=== PATIENT | male | born 1930 | race Caucasian/White ===

== ENCOUNTER 2016-06-03 14:43 | Inpatient (IN) | payer MEDICARE ==
[~2016-06-03] VITALS: Ht 177.8 cm; Wt 91.6 kg
--- NOTE | ~2016-06-03 | CO ---
ADMIT: 06/03/2016 RM/LOC: 419 [facility] MR#: [id number] [id number] [place], [place] [address] FLETCHER BYRD [address] [facility] [address] [place] [address] Consultation SEX: M AGE: 85 : 1930 DATE OF CONSULTATION: 06/04/2016 ATTENDING PHYSICIAN: Drew Curran CONSULTING PHYSICIAN: Remy Mancuso MD REASON FOR CONSULTATION: Altered mental status. HISTORY OF PRESENT ILLNESS: The patient is an 85-year-old gentleman who became acutely confused yesterday. He was at home. His son called EMS, and as per report, the vitals were as follows; heart rate 40s and systolic, blood pressure in 80s. The patient was taken to the hospital where he started to respond more appropriately. The patient does have amnesia to yesterday's events. The patient lives alone in an apartment. He used to live in a house with his , unfortunately past winter after 66 years of marriage. The patient admits to be depressed because of that. He reports to me that he is able to perform majority of ADLs including driving with no parking violation. No tickets. No minor accidents. Shopping, dressing and preparing his meals. He is self-administering medications. As per Cardiology note, the patient could have overdosed inadvertently with blood pressure medication explaining the heart rate and the blood pressure. The CT on arrival showed significant atrophy with minor changes and a question of enlarged ventricles/NPH and PH. PAST MEDICAL HISTORY: Significant for hypertension, hyperlipidemia, hypothyroidism, potential cognitive decline, potential depression. ALLERGIES: NO KNOWN DRUG ALLERGIES. MEDICATIONS: On outpatient basis include aspirin, Mobic, Synthroid, Zocor. FAMILY HISTORY: Noncontributory to current presentation. SOCIAL HISTORY: The patient is . No recent alcohol use. No smoking. His last alcohol drink was 20 years ago. REVIEW OF SYSTEMS: All systems reviewed, negative except as per HPI and following general fatigue, psychiatrical depression, neurological memory loss, and confusion. PHYSICAL EXAMINATION: VITAL SIGNS: Temperature 97.8, heart rate 59, respirations 16, blood pressure 170/53, saturation 99% on room air. GENERAL: The patient appears to be in no acute discomfort. HEAD: Normocephalic. NECK: Supple. CHEST: Normal respiratory rises. ADMIT: 06/03/2016 RM/LOC: 419 [facility] MR#: [id number] [address] [address] FLETCHER BYRD [address] [place] [address] [address] [place] [address] Consultation SEX: M AGE: 85 : 1930 CARDIOVASCULAR: Regular rate and rhythm. ABDOMEN: Nondistended, nontender. EXTREMITIES: No clubbing or cyanosis. NEUROLOGICAL EXAMINATION: The patient is awake, alert. He is oriented to self. He knows he is in [facility] but thinks that he is on the 14th floor. He is able to tell me correct date, month, and year but not the day of the week and not season despite he was able to identify correct month. He answered that this is fall. Recall, recalled 2/4 items after 5 minutes. Attention is reduced, tested with spelling "world" backwards as well as zero seven. He achieved only 1/5 points. Cranial nerves II through XII are fairly intact. Visual saldana are normal. Pupils equal, reactive. Extraocular muscles intact. Facial sensation is normal. Face is symmetric. Hearing to voice intact. Uvula midline. Palatal arch is symmetric. Shoulder shrug symmetric. Tongue is midline, fairly moveable. Motor examination reveals full strength throughout. Normal tone. Sensory nonfocal, nonlateralizing. Reflexes brisk, symmetric in upper extremities and knees, but absent in ankles. Babinski is flexor bilaterally. Coordination, finger- to-nose normal. Gait is wide based. Gait slightly unstable. LABORATORY DATA: Studies already available a carotid ultrasound, which is showing left internal carotid artery stenosis and the degree is 60-79%. A1c is 5.5, B12 of 287, LDL is 53. CT findings discussed above. ASSESSMENT: 1. Mild delirium secondary to hypotension and bradycardia. 2. Significant cerebral and cerebral atrophy. I do not think in the direction of NPH. 3. Cognitive decline/early dementia. 4. Depression. 5. Hypothyroidism. PLAN: MRI to be obtained. We will need to reassess gait, but again I am not confident that this represents NPH, rather there is generalized atrophy on the CT scan seen. We will obtain EEG tomorrow as well. When the workup is done, the patient may be started on SSRIs for depression with potentially Exelon. The B12 supplementation will also be started. Thank you very much for this interesting consultation. Remy Mancuso MD/ mo JOB #: [id number] CC: Drew Curran, Attending Physician Drew Curran, Family Physician
--- NOTE | ~2016-06-03 | ECH ---
Transthoracic Echocardiography Report (TTE) Demographics Patient Name FLETCHER BYRD Date of Study 06/04/2016 Patient Number [id number] Visit Number [id number] Date of 1930 Room Number 419 Accession Number [id number] Gender Male Age 85 year(s) Referring Magdy Weeks Fundraising Director Nandini Mcleod Physician KARI Physician Eva Ryan MD Clinical Psychologist Private Practice Physician Viraj Supervising Ordering Physician Magdy Weeks MD/MLP Nurse Stress Garland Maker Conclusions Contractility Score Summary Normal Left Ventricular contractility was noted. Summary Technically adequate exam. The estimated left ventricular ejection fraction is 60%. Diastolic assessment reveals Grade I diastolic dysfunction. The left atrium is mildly dilated by LA volume index measurement. Bubble study was done, there is no evidence for a PFO or ASD. There is mild-moderate aortic regurgitation by color Doppler. Trivial tricuspid regurgitation by color Doppler. There is mild pulmonary hypertension. The pulmonary pressure (RVSP) is 36 mmHg. Recommendation The patient will be given the results of this study by the physician who ordered the exam. Procedure Type of Study TTE procedure:Echo Complete SF. Procedure Date Date: 06/04/2016 Start: 11:07 AM Technical Quality: Adequate visualization Indications:Bradycardia, TIA and Hypertension. Appropriate Use Criteria: 9 Height: 70 inches Weight: 201 pounds BSA: 2.09 m Rhythm: Within normal limits HR: 63 bpm BP: 160/60 mmHg M-Mode/2D Measurements LV Diastolic Dimension: 5.28 cm LV Systolic Dimension: 3.03 cm LV Septum Diastolic: 0.92 cm LV PW Diastolic: 0.99 cm AO Root Dimension: 3.4 cm Cardiac Output: 5.16 l/min LA Dimension: 3.28 cm Cardiac Index: 2.47 l/min*m RV Diastolic Dimension: 3.51 cm LA volume index: 38 ml/m LVOT: 1.91 cm LVOT VTI: 28.61 cm RV Base: 3.4 cm LV Stroke volume: 81.93 ml RV Mid: 2 cm LV Stroke volume index: 39.2 ml/m TAPSE: 3.1 cm TDI-S': 18 cm/s Doppler Measurements AV Peak Velocity: 2.2 m/s MV Peak E-Wave: 0.99 m/s AV Peak Gradient: 19.36 mmHg MV Peak A-Wave: 1.07 m/s AV Mean Gradient: 9.04 mmHg MV E/A Ratio: 0.93 LVOT Peak Velocity: 1.37 m/s MV P1/2t: 93.3 msec AV Area (Continuity):1.8 cm AV P1/2t: 500.8 msec MV Deceleration Time: 352.2 msec TR Velocity:2.79 m/s MV Area (PHT): 2.36 cm TR Gradient:31.14 mmHg PV Peak Velocity: 0.94 m/s Estimated RAP:5 mmHg PV Peak Gradient: 3.5 mmHg Estimated RVSP: 36 mmHg Estimated PASP: 36.14 mmHg E' Septal Velocity: 0.05 m/s A' Septal Velocity: 0.09 m/s E' Lateral Velocity: 0.07 m/s A' Lateral Velocity: 0.09 m/s RA Area: 12.37 cm Findings Left Ventricle Normal left ventricle size and function. Diastolic assessment reveals Grade I diastolic dysfunction. Right Ventricle Normal right ventricle structure and function. Left Atrium The left atrium is mildly dilated by LA volume index measurement. Informed consent was obtained, bubble study was done, there is no evidence for a PFO or ASD. Right Atrium Normal right atrial size. Mitral Valve Normal mitral valve structure and function. Trivial mitral regurgitation by color Doppler. Aortic Valve Normal aortic valve structure and function. There is mild-moderate aortic regurgitation by color Doppler. Tricuspid Valve Normal tricuspid valve structure and function. Trivial tricuspid regurgitation by color Doppler. There is mild pulmonary hypertension. The pulmonary pressure (RVSP) is 36 mmHg. Pulmonic Valve Normal pulmonic valve structure and function. Trivial pulmonic valve regurgitation by color Doppler. Pericardial Effusion No evidence of pericardial effusion. Miscellaneous Visualized portions of the aortic root and ascending aorta appear normal in size. Suboptimal subcostal window to evaluate the IVC and interatrial septum. Pleural Effusion No evidence of pleural effusion. Contractility Score LV regional wall motion:(0-Non visualized 1-Normal 2-Hypokinesis 3-Akinesis 4-Dyskinesis 5-Aneurysm) Signature
--- NOTE | 2016-06-07 10:36 | CO ---
ADMIT: 06/03/2016 RM/LOC: 419 [facility] MR#: [id number] [id number] [place], [place] [address] FLETCHER BYRD [address] [facility] [address] [place] [address] Consultation SEX: M AGE: 85 : 1930 DATE OF CONSULTATION: 06/04/2016 ATTENDING PHYSICIAN: Drew Curran CONSULTING PHYSICIAN: Hetal Kim MD REASON FOR CONSULT: Bradycardia and hypotension. Vanessa Cardoso RN, scribing for Hetal Kim M.D. HISTORY OF PRESENT ILLNESS: Ed is a very pleasant 85-year-old gentleman, I have been asked to see in Cardiology consultation by Dr. Curran for bradycardia and hypotension. He has no prior history of coronary artery disease and has not been evaluated by Cardiology in the past. He does have history of hypertension and hyperlipidemia, treated by primary care and hypothyroidism as well. Ed was brought to [facility] yesterday by EMS due to increased confusion with bradycardia and hypotension. His son had called him in the morning and visited with him with no issue. He then communicated with him later on in the day and he seemed quite confused. Speaking with Ed, he remember speaking with his son in the morning, he felt fine. He did note that later on in the morning, he was working on his checkbook and noticed that he had difficulty with numbers and he stated that he had trouble thinking clearly. He notes that he was not thinking clearly when he saw his son but does not completely remember the incident. When EMS arrived, his heart rate was in the 40s and his blood pressure systolic was in the 80s. He was given atropine with minimal improvement. He was brought to the hospital, where he was communicating a little bit more with heart rate in the upper 40s to low 50s and blood pressure was still low. His blood pressure medications including verapamil and metoprolol were held and his heart rate has been above 50 since admission. His blood pressure has actually been on the higher side, this morning, it was 160/60. He is afebrile. He denies any chest pain, shortness of breath, palpitations, or presyncope. He denies any peripheral edema or orthopnea. He feels that he rested well last night and has no complaints this morning. He has been working with Physical Therapy and Occupational Therapy without any issue. Cardiac enzymes have been negative x3. TSH was mildly elevated at 5.38. PAST MEDICAL HISTORY: Includes hypertension, hyperlipidemia, hypothyroidism. ALLERGIES: NO KNOWN MEDICATION ALLERGIES. MEDICATIONS: Current medications include: 1. Aspirin 325 daily. 2. Mobic 15 mg p.o. daily. 3. Synthroid 75 mcg daily. 4. Zocor 20 p.o. at bedtime. His metoprolol and verapamil were held and since admission, Synthroid was increased from 50 mcg to 75 mcg. ADMIT: 06/03/2016 RM/LOC: 419 [facility] MR#: [id number] [address] [address] [place] [address] Consultation SEX: M AGE: 85 : 1930 FAMILY HISTORY: Noncontributory. SOCIAL HISTORY: Ed is . His recently in February and he appears to be depressed from that. He was moved from his apartment at home to assisted living at [facility]. He does do his own medications currently. Denies any alcohol or drug use. Denies any tobacco. REVIEW OF SYSTEMS: GENERAL: Denies fatigue, fever, sweats. EYES: He wears corrective lenses. Denies vision changes. THROAT, MOUTH, AND EARS: Denies hearing loss or problems with nose, mouth or throat. RESPIRATORY: Denies cough, sputum production, asthma, emphysema or bronchitis. Denies snoring loudly, wakefulness at night, or fatigue upon awakening. GASTROINTESTINAL: Denies heartburn or difficulty swallowing. No change in bowel habits. Denies dark or bloody stools. No history of ulcers, hiatal hernia, or gallbladder or liver disease. GENITOURINARY: Denies dysuria, hematuria, nocturia, urinary tract infection, or kidney stones. Denies history of renal insufficiency or failure. MUSCULOSKELETAL: Some arthritis. Denies any pains currently. ENDOCRINE: History of hypothyroidism. Denies diabetes. HEMATOLOGY: Denies history of anemia, easy bruising, or cancer. NEUROLOGIC: Denies chronic headaches, dizziness, syncope, stroke, seizures or numbness or tingling. PSYCHIATRIC: Dementia. No anxiety. He is tearful today. PHYSICAL EXAMINATION: GENERAL: A well-nourished white male, no acute distress. Alert and oriented x2. VITAL SIGNS: Blood pressure 160/60, heart rate 55, respirations 18, temperature 98.2, oxygenation 97% on room air. SKIN: [place], warm and dry. EYES: Sclerae clear. No xanthelasmas. ENT: Oral mucosa is pink and moist. No jugular venous distention or carotid bruits. CHEST: Respirations are even and unlabored. Lungs are clear to auscultation. HEART: Regular rate and rhythm. Normal S1, S2. No murmurs, rubs or gallops. ABDOMEN: Soft and nontender. MUSCULOSKELETAL: Gait is normal. Tremors positive. EXTREMITIES: Peripheral pulses palpable. No clubbing, cyanosis or edema. PSYCHIATRIC: Alert and oriented. Mood and affect are appropriate. DIAGNOSTIC DATA: Carotid ultrasound on 06/03 showed left internal carotid artery of 60-79% and right of 1-39%. Sodium 143, potassium 3.5, BUN 20, creatinine 0.9, glucose 85, magnesium 2.2. Cholesterol 128, triglycerides 88, HDL 52, LDL 63. CK 50, MB 1.2, troponin less than 0.015 on third set. All three sets have been negative. Hemoglobin A1c 5.5, TSH 5.38. White blood cell count 5.8, hemoglobin 12.5, hematocrit 39.3, platelets 118. ASSESSMENT AND PLAN: ADMIT: 06/03/2016 RM/LOC: 419 [facility] MR#: [id number] [address] [facility] [address] [place], [place] [address] FLETCHER BYRD [address] [facility] [address] [place] [address] Consultation SEX: M AGE: 85 : 1930 1. Medication-induced bradycardia. 2. Hypotension, resolved. 3. Mental status changes. I suspect medication overdose leading to his decreased heart rate. His blood pressure and heart rate have improved since hospital admission. I think he would likely benefit from medication assistance. I will review echocardiogram once that has been completed for any wall motion abnormalities, valvular abnormalities, or decreased ejection fraction. My question of depression leading to some of these memory issues as well. I did speak with his son today at the patient's request regarding these ongoing issues as well. Thank you for the consultation. I have read and agree with the documentation that has been completed regarding this visit. By signing this record, I attest that the documentation was completed in my physical presence and is an accurate record of the encounter. Vanessa Cardoso RN / Hetal Kim MD / mo JOB #: [id number] CC: Drew Curran, Attending Physician Drew Curran, Family Physician
[2016-06-07] MEDS ORDERED: FLOMAX DPS0.4 MG PO (15:15)
[2016-06-07] MEDS ORDERED: MOBIC15 MG PO (15:16)
[2016-06-07] MEDS ORDERED: SYNTHROID75 MCG PO (15:16)
[2016-06-07] MEDS ORDERED: NORCO 5-325 TA1 EACH PO (15:16)
[2016-06-07] MEDS ORDERED: ZOCOR DPS20 MG PO (15:16)
[2016-06-07] MEDS ORDERED: ASA325 MG PO (15:16)
[2016-06-07] MEDS ORDERED: NORVASC5 MG PO (15:17)
[2016-06-07] MEDS ORDERED: APRESOLINE-DPS25 MG PO (15:17)
[2016-06-07] MEDS ORDERED: DULCOLAX-DPS5 MG PO (15:17)
[2016-06-07] MEDS ORDERED: B-12 IM (15:18)
[2016-06-07] MEDS ORDERED: EXELON1 EACH TD (15:19)
[2016-06-07] MEDS ORDERED: SEROQUEL25 MG PO (15:19)
[2016-06-07] MEDS ORDERED: MAALOX DPS30 ML PO (15:19)
[2016-06-07] MEDS ORDERED: SURFAK DPS240 MG PO (15:20)
[2016-06-07] MEDS ORDERED: TYLENOL DPS325 MG PO (15:24)
--- NOTE | 2016-06-07 20:05 | CO ---
ADMIT: 06/03/2016 RM/LOC: 419 [facility] MR#: [id number] 26[address] [facility] [address] [place], [place] [address] FLETCHER BYRD [address] [facility] [address] [place] [address] Consultation SEX: M AGE: 85 : 1930 DATE OF CONSULTATION: 06/05/2016 ATTENDING PHYSICIAN: Drew Curran CONSULTING PHYSICIAN: Albin Kent MD LOCATION OF SERVICE: [facility]. REASON FOR CONSULTATION: Dr. Smith has requested our consultation for apprise counselor, coordination of long-term goals, and options of care. HISTORY OF PRESENT ILLNESS: This is a pleasant 85-year-old, elderly male, who was admitted on 06/03/2016 with altered mental state. He was living in independent living area apartments at [facility] here in [place]. It is reported that he became acutely confused and his son, [id number], Oleksandr Byrd called 911, and he was found have a heart rate in the 40s, and the systolic blood pressure in the 80s. He was transferred here to [facility] for further evaluation and treatment. [facility] Cardiology team has been following him and has had completed medication adjustments as they do feel this was medication-related bradycardia. He did have a transthoracic echocardiogram completed on 06/04/2016, revealing ejection fraction 60% with diastolic dysfunction, stage I. Negative for PFO or ASD, mild pulmonary hypertension with an RVSP of 36 mmHg. He also had a CT of the neck revealing the left proximal ICA 73% stenosis on 06/04/2016. Dr. Mancuso with Neurology has also been consulted due to his altered mental status, and a CT of his head was completed on 06/03/2014, revealing mild chronic small vessel ischemic changes questionable for normal pressure hydrocephalus. He then further evaluation had an MRI of the brain on 06/04/2016, which showed moderate-to- severe atrophy with chronic small vessel ischemic changes. An EEG has been ordered today and completed and results are pending at this time. It is thought that the patient does have cognitive delay and early dementia, and did experience delirium secondary to hypotension and bradycardia. Mr. Byrd is struggling with depression as his spouse did last winter, they were for 66 years. He feels he has good support through his family and friends. He has had blood cultures and urine cultures obtained since admit, which have been negative so far. His heart rate is in the 60s at this time, and Cardiology has signed off for now with a followup in the future for further evaluation and treatment needs. Dr. Mancuso of Neurology continues to follow as the EEG was completed today and results are pending. He is continuing to work with Physical Therapy and Occupational Therapy at this time for his debility, and Social Work is following with plans of the half-way facility at discharge with transition into an assisted living apartment to assist with medication administration and overall safety and needs. Current functional status reflects a palliative performance score of 50. He spends most of the time in the bed or in a chair, unable to do any work due to his overall disease state. He does need assist with his self care. He is working with Physical Therapy and occupational Therapy at this time. His ADMIT: 06/03/2016 RM/LOC: 419 [facility] MR#: [id number] [address] [place] [id number] [address] [place] [address] Consultation SEX: M AGE: 85 : 1930 intake is reduced. His conscious level is full at this time. He is alert and oriented x3, and able to participate in conversation with me at this time. Prior to admission, he reports his functional status reflected a palliative performance score of around 90. He was ambulating without assistive device. He was able to live in independent living apartment. He was able to perform the majority of his ADL including driving with no parking violations or tickets or minor accidents. He was able to do shopping, dressing, and preparing his meals, and he was self administering his medications. He denies any falls or any weight loss. PAST MEDICAL HISTORY: 1. Hypertension. 2. Hyperlipidemia. 3. Hypothyroidism. 4. Potential cognitive decline, dementia 5. depression. ADVANCED DIRECTIVE AND CODE STATUS: He is a do not resuscitate/do not resuscitate status. His healthcare [id number] is his son, Oleksandr Byrd and his phone #[phone]. SOCIAL HISTORY: He was living in an independent living apartment at [facility]. He is . His of 66 years last winter on hospice care. He is Jain. 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 He denies alcohol, tobacco use, or illicit drug use at this time. He does have 7 children involved in his care. FAMILY HISTORY: Reviewed and noncontributory. CURRENT MEDICATIONS: Include: 1. Norvasc 5 mg p.o. daily. 2. Seroquel 12.5 mg p.o. at bedtime p.r.n., insomnia. 3. Apresoline 25 mg p.o. t.i.d. 4. Flomax 0.4 mg p.o. b.i.d. 5. Aspirin 325 mg p.o. daily. 6. Mobic 15 mg p.o. daily. 7. Synthroid 0.075 mg p.o. daily. 8. Haldol 0.5 mg IV push q.hour p.r.n. 9. Zocor 20 mg p.o. at bedtime. 10.Maalox 30 mg p.o. q.6 hours p.r.n. 11.Tylenol 650 mg p.o. q.4 hours p.r.n. ALLERGIES: NO KNOWN DRUG ALLERGIES. REVIEW OF SYSTEMS: A 10-point review of systems was obtained and they were negative except as noted in HPI and PMH. He does refer general fatigue. He does report depression since his passed. He does report he was confused on admit, however, he feels he is much clearer now. He denies cough, fever, chills, or recurrent infections. ADMIT: 06/03/2016 RM/LOC: 419 [facility] MR#: [id number] [address] [address] FLETCHER BYRD [address] [facility] [address] [place] [address] Consultation SEX: M AGE: 85 : 1930 PHYSICAL EXAMINATION: CONSTITUTIONAL: Weight is 202 pounds. Please see medical record for height and BMI. GENERAL STATUS: This is a pleasant elderly male, in no acute distress. Alert and oriented, able to participate fully in consultation. VITAL SIGNS/CODE STATUS: He is a do not resuscitate/do not intubate status with temperature of 98.1, heart rate 60, respiratory rate 18, blood pressure 173/70. He is on room air oxygenating at 97%. HEENT: Head is normocephalic and atraumatic. He is not wearing glasses. Pupils are 3 mm. PERRLA. Hearing is intact bilaterally. Oral mucosa is dry. Dentition is worn. Anicteric sclerae. Conjunctiva is pale. NECK: No lymphadenopathy. Trachea is midline. Supple. No JVD. RESPIRATORY: Respirations are regular without distress. Lung sounds are clear to auscultation bilaterally. CARDIOVASCULAR: Rate and rhythm are regular. I do not auscultate any rubs, murmurs, clicks, or gallops. GASTROINTESTINAL: Abdomen is obese, nontender, nondistended. Positive bowel sounds in all 4 quadrants. EXTREMITIES: Upper and lower extremities are free of cyanosis, clubbing. He does have a trace amount of edema. INTEGUMENTARY: Skin temperature is warm. Skin is intact. MUSCULOSKELETAL: Free of joint deformities. He does have generalized weakness. NEUROLOGICAL: Alert and oriented x3. He does follow commands. PSYCHIATRIC: Affect is appropriate. Insight is intact. DIAGNOSTIC DATA: Laboratory work reveals a sodium of 143, potassium 3.5, chloride 110, creatinine 0.9, albumin 3.6. TSH 5.38. INR 1.05. WBC of 5.8, hemoglobin 12.5, hematocrit 39.3, platelets 118. Blood cultures and urine cultures collected on 06/03/2016 are negative so far. Radiology reports have been reviewed, please see EMR for details. IMPRESSION AND PLAN: 1. Physical debility. Physical therapy and Occupational Therapy are following at this time. 2. Acute encephalopathy. Dr. Mancuso with Neurology is following and EEG has been obtained today, which is pending, his encephalopathy has improved since admit. 3. Fatigue. 4. Dementia with FAST score of around 4 to 5. 5. Insomnia. Seroquel is available on an as-needed basis. I do recommend considering using melatonin in the future if insomnia persists. 6. Hypokalemia. 7. Bradycardia, which is resolved, and MOMO is following, and has ordered medication changes. 8. Severe left carotid stenosis. 9. Diastolic dysfunction stage I. 10.Hypertension. ADMIT: 06/03/2016 RM/LOC: 419 [facility] MR#: [id number] [address] [place] [id number] FLETCHER BYRD [address] [place] [address] Consultation SEX: M AGE: 85 : 1930 11.Hyperlipidemia. 12.Mild pulmonary hypertension with RVSP of 36 mmHg. 13.Depression. 14.Hypothyroidism. 15.Palliative care. 16.Do not resuscitate/do not intubate status. Currently, plan of care is in place with optimization along with a do not resuscitate/do not intubate status and Mr. Byrd confirms this. Social Work is following at this time for discharge needs and reports he will start in a half-way environment with transition into assisted living and will not return to his independent living, and the patient agrees to this as well. Son is healthcare [id number] by the name of Oleksandr Byrd and he is involved in his care and has been updated. I reviewed goals and options of care with the patient and he verbalizes understanding and explains to me that his spouse in 2015, and his #1 goal is to continue to try to find meaning and hope in life again. He finds enjoyment in his seven children as well as baseball. He enjoys [employer] as well as his friends. He explains having all of his plans completed as his did, and is "ready when the time comes." He reports his spouse, Polina, on hospice care and he would want the same when his time comes. He reports his children know this as well. Mr. Byrd is aware of living environment changes due to the safety needs as well as care needs and medication administration needs and he agrees to placement in half-way facility and in assisted living environment in the future. Much encouragement given to him to enjoy life, and to continue the Physical Therapy and Occupational Therapy and to allow assistance with his care which I hope provides him more independence in the future. We will continue to follow this wonderful gentleman and provide support as he continues to grieve the loss of his . I recommend a antidepressent trial in the future if depression continues. I have discussed this consultation with Social Work as well as nursing staff. Mr. Byrd was seen in collaboration with Dr. Albin Kent, who agrees with above assessment discussion and plan. I would like to thank Dr. Smith for the invitation to participate in Mr. Byrd's hospital course. Total consultation time was from 0950 hours to 1054 hours on 06/05/2016 by the Palliative Medicine DISABILITY INSURANCE HEARING OFFICER. Greater than 50% of this time was spent at the bedside in counselling and coordination of care. Litzy Kwok, JORJE / Albin Kent MD / mo JOB #: [id number] CC: Drew Curran, Attending Physician Drew Curran, Family Physician
--- NOTE | 2016-06-11 19:06 | ER ---
ADMIT: 06/03/2016 RM/LOC: 419 [facility] MR#: [id number] [id number] [place], [place] [address] FLETCHER BYRD [address] [facility] [address] [place] [address] Emergency Room Report SEX: M AGE: 85 : 1930 DATE: 06/03/2016 HISTORY OF PRESENT ILLNESS: The patient is an 85-year-old male, who is living in assisted living and with a history of hypothyroidism and hypertension, who was brought here because of altered mental status and low blood pressure. Per son, he talked to the patient this morning and the patient was at baseline mental status and while at 1330 hours, he called the patient. He noticed the patient was confused. He got to the place and noticed the patient is not at his baseline, is just staring, and could not really respond as well as before and looks disoriented. He called EMS. Per EMS at the scene, the patient had heart rate of low 40s and blood pressure systolic was in 80s. The patient received atropine 0.5 mg which changed the heart rate to high 40s. The patient was brought to the ER. Talking to the patient, he was mildly confused. The systolic blood pressure was in high 80s, and the pulse was between 45 and 55. The patient was answering questions. Denied any chest pain or any discomfort or any fall or taking any drugs. The patient states he dispenses his medication himself. PHYSICAL EXAMINATION: HEAD AND NECK: Pupils are 3 mm, reactive to light bilaterally. Normal extraocular movements. Trachea midline. NECK: No bruit on the neck. HEART: Normal S1, S2. LUNGS: Normal bilateral clear lung sounds. ABDOMEN: Soft. NEUROLOGIC: Motor and sensory and cerebellar test and cranial nerves are grossly normal. MEDICATIONS: The patient's medications consist of: 1. Beta-amarjit. 2. Calcium channel amarjit. 3. Verapamil. 4. Metoprolol. 5. Levothyroxine 50 mcg. The patient states he dispenses the medications himself. EMERGENCY DEPARTMENT COURSE: EKG was suggestive of junctional escape rhythm with a rate of low 40s. I did not see any ST or T changes. At this stage, the patient received half a liter IV fluid normal saline, which increased the systolic blood pressure to 105. Heart rate is changing between 48 and 58. The patient became more alert and oriented and son came at bedside and stated ADMIT: 06/03/2016 RM/LOC: 419 [facility] MR#: [id number] [address] [address] FLETCHER BYRD [address] [place] [address] Emergency Room Report SEX: M AGE: 85 : 1930 that the patient is at very similar to baseline. CT scan of the brain showed hydrocephalus, questionable normal pressure hydrocephalus, with some small vessel chronic ischemic changes. There is no acute bleeding in the brain. At this stage, primary cardiac conduction pathology, block versus calcium channel amarjit and beta-amarjit overdose are at the top of differentials. Cardiac enzyme, troponin I was negative. D-dimer was negative. TSH was elevated to 5.3. The rest of the lab work was noncontributory. Chest x-ray did not show any pathologies. The patient was observed during his observation in the ER since the time he came. A pacer pad was put on the patient for any possible pacing which could be needed. Family Medicine was consulted. The patient was admitted for further followups and treatments of bradycardia, altered mental status, questionable overdose of metoprolol and verapamil. Yariel Garcia MD/ mo JOB #: [id number] CC: Drew Curran MD, Attending Physician Drew Curran MD, Family Physician
--- NOTE | 2016-06-21 13:58 | HP ---
ADMIT: 06/03/2016 RM/LOC: 419 [facility] MR#: [id number] [id number] [place], [place] [address] [address] [facility] [address] [place] [address] History and Physical SEX: M AGE: 85 : 1930 DATE OF SERVICE: CHIEF COMPLAINT: Altered mental status with confusion and disorientation. CLINICAL HISTORY: The patient is an 85-year-old, white male, who was brought to the ER by ambulance after being found by his son on the afternoon of 06/03/2016 to be confused, disoriented, and for a short period of time unresponsive with no verbal response, just a blank stare. His son had talked to him earlier in the morning and he seemed quite appropriate. He does have some mild confusion and some forgetfulness but was at his baseline mental status earlier in the morning on 06/03/2016. When his son checked in on him on the afternoon of 06/03/2016, he was confused, disoriented, and as noted while his son was talking to him, the patient had a blank stare and was unresponsive for approximately a minute. Because of the unresponsive episode, his son called EMS. On arrival of the ambulance, the patient was noted to have a heart rate in the 40s and a systolic blood pressure in the 80s. An IV was started and he was given IV atropine which elevated his heart rate to the high 40s to low 50s, but there was still no significant improvement in blood pressure. They gave him a fluid bolus, but while en route to the hospital, his systolic blood pressure was running around 80-90. By the time he arrived in the ER, his blood pressure was improved. He denied any chest pain or shortness of breath. He was confused for the events of the afternoon. Do note he has a history of hypertension and is on both beta-amarjit as well as a calcium channel amarjit. There was some concern that he may have double dosed or overdosed his blood pressure medications. As noted in the ER, his fluid bolus was continued and his blood pressure improved, but he continued to remain bradycardic with heart rate 45 to 50. Given his bradycardia, hypotension, and altered mental status, it was felt best to admit the patient. There was concern for possible acute cerebrovascular event or TIA. A CT of his head done in the ER showed no evidence of acute stroke or acute hemorrhage. However, there was significant cerebral atrophy and changes of chronic small vessel disease. Because of his altered mental status, he is admitted at this time for observation of both neurologic status to rule out acute CVA as well as for cardiac monitoring to rule out acute cardiac event given his bradycardia and hypotension. PAST MEDICAL HISTORY: RECENT HOSPITALIZATIONS: None. The patient was last hospitalized at [facility] in 1996. He was hospitalized for a hydrocelectomy for a left hydrocele. Other surgeries include a remote past history of appendectomy, inguinal hernia repairs x3, previous hydrocelectomy on the right side. He has had no other major surgeries. MEDICAL ILLNESSES: His medical illnesses include: 1. Hypertension. 2. Hyperlipidemia. 3. Generalized osteoarthritis. 4. Chronic back pain. ADMIT: 06/03/2016 RM/LOC: 419 [facility] MR#: [id number] [address] [place] [id number] [place] [address] History and Physical SEX: M AGE: 85 : 1930 5. Advanced degenerative disk disease, lumbosacral spine. 6. Benign prostatic hypertrophy. 7. Hypothyroidism. 8. Chronic constipation. 9. Chronic cerebrovascular disease. CURRENT MEDICATIONS: Include: 1. Flomax 0.4 mg twice daily. 2. Simvastatin 20 mg at bedtime. 3. Meloxicam 15 mg daily. 4. Terazosin 5 mg at bedtime. 5. Metoprolol 12.5 mg b.i.d. 6. Verapamil ER 240 mg one daily. 7. Levothyroxine 50 mcg daily. 8. [place] 5/325, one every 4 hours p.r.n. back pain. 9. ASA 5 grains daily. 10.Dulcolax 5 mg tablet one daily p.r.n. constipation. ALLERGIES: THE PATIENT DENIES ANY ALLERGIES AT THIS TIME. HOWEVER, OLD RECORDS REVEAL A PAST HISTORY OF POSSIBLE RASH FROM [place]. SOCIAL HISTORY: The patient is recently . His approximately 4-5 months ago. Since then, he has moved out of the family home and is now living in independent living at [facility]. He has had a great deal of stress with the loss of his lifelong partner. He has had some ongoing depression since her . Family has noted since he is now living on his own, significant increase in his confusion and memory deficits. He is a nonsmoker. He rarely consumes any alcoholic beverages. He has no history of illicit drug use. The patient retired approximately 15 years ago. FAMILY HISTORY: There is no significant family history of any familial- related health problems. There is a history of hypertension and coronary artery disease, but for most of the family members, this has been late in life. REVIEW OF SYSTEMS: CONSTITUTIONAL: No fever. No chills. No recent change in appetite. Weight stable. HEENT: He does have some mild hearing impairment. No other eye, ear, nose, or throat complaints. No upper respiratory congestion. No swallowing difficulties. PULMONARY: No shortness of breath. No cough. No sputum production. No pleuritic chest pain. CARDIAC: No chest pain. No palpitations. No prior history of rhythm disturbance. GASTROINTESTINAL: History of hiatal hernia. Past history of esophageal stricture, some chronic GERD symptoms. No vomiting or diarrhea. Struggles with intermittent constipation. GENITOURINARY: History of BPH, urinary hesitancy. No recent or prior urinary ADMIT: 06/03/2016 RM/LOC: 419 [facility] MR#: [id number] [address] [address] [address] [facility] [address] [place] [address] History and Physical SEX: M AGE: 85 : 1930 tract infections. No dysuria or hematuria. No history of kidney stones. MUSCULOSKELETAL: Chronic back pain. History of degenerative disk disease. History of lumbar spinal stenosis at L4-L5, L5-S1. History of chronic left sciatica with weakness in his left leg. Does have generalized arthritis. NEUROLOGIC: No previous history of strokes, seizures, or unusual headaches. No focal neurologic symptoms. ENDOCRINE: No history of diabetes. He is hypothyroid, on thyroid replacement. HEMATOLOGIC: No history of blood clots or clotting disorders. No history of anemia. PSYCHIATRIC: He has had some mild depression since the loss of his . No previous history of depression or mood difficulties. There has been some mild neurocognitive impairment noted over the last 6 months. PHYSICAL EXAMINATION: VITAL SIGNS: Temp is 97.7, pulse 55, respirations 16, blood pressure on admission to the floor 131/57, O2 saturation 96%. Current weight is 201 pounds, height is 5 feet 10 inches. GENERAL: The patient is an 85-year-old male who appears his stated age. He is in no acute distress. He is oriented to place and person but disoriented to time. He has some amnesia and no memory of the events of earlier in the afternoon. He is unsure or not whether he took his medications but believes he did. HEENT: Reveals his ears to be clear. Hearing is grossly intact. Nose and throat noninflamed. Pupils equal and reactive. Sclerae nonicteric. Extraocular movements intact. NECK: Supple. No carotid bruits. No neck masses. Thyroid not enlarged. LUNGS: Today are noted to be clear. No dullness to percussion. HEART: Has a regular rhythm. He is bradycardic. No significant murmur noted. ABDOMEN: Somewhat protuberant and obese, nontender. No masses. No organomegaly. Bowel sounds normoactive. No CVA or suprapubic tenderness. GENITALIA: Normal male. No hernias. EXTREMITIES: He is noted to have changes of chronic venous insufficiency and rather significant stasis dermatitis of his left lower extremity. He has some muscle atrophy and weakness in the left leg compared to the right. The patient's balance is unsteady. He struggles a little to get from sitting to standing. Once standing, he has a wide based gait and seems to be unstable without use of a walker. I cannot appreciate any new focal neurologic deficits, but as noted balance is poor and he exhibits generalized weakness. LABORATORY WORK: In the ER, his CBC showed a white count of 7000, hemoglobin 13.4. INR was normal at 1.05. Cardiac enzymes were normal with troponin I being less than 0.015. Chemistry studies showed his sodium to be 143, potassium 4.1, BUN was 19, creatinine 1.4. Magnesium was 2.2. His urinalysis was clear. TSH was elevated at 5.38. ASSESSMENT AT THE TIME OF ADMISSION: 1. Altered mental status, possible transient ischemic attack. Rule out ADMIT: 06/03/2016 RM/LOC: 419 [facility] MR#: [id number] [address] [address] [address] History and Physical SEX: M AGE: 85 : 1930 cerebrovascular accident. 2. Progressive neurocognitive impairment. Suspect cerebrovascular insufficiency. 3. Chronic cerebrovascular disease with small vessel disease as documented on head CT in the ER. 4. Bradycardia, possibly medication-related. 5. Hypotension, possibly medication-related. 6. Hypertension. 7. Hyperlipidemia. 8. Hiatal hernia with chronic gastroesophageal reflux disease. 9. Benign prostatic hypertrophy. 10.Degenerative disk disease, lumbosacral spine. 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 12.Hypothyroidism. PLAN: Plan is to admit the patient. Concerned about both an acute cerebrovascular event as well as possible acute cardiac event. We will do serial EKGs and enzymes. We will ask Cardiology to see and evaluate as well. We will also ask Neurology to see him in consultation. I feel his mental status changes are probably most likely related to his progressive cerebrovascular small vessel disease but need to proceed with further workup to include carotid Doppler study, echocardiogram, and MRI of the head. We will get, as noted, both Neurology and Cardiology consultations. Ultimately feel that he will need at least a short-term alf unit stay. Question whether it is safe for him to return to an independent living status or if we need to be looking at assisted living for him for medication management. Drew Curran MD/ mo JOB #: [id number] CC: Drew Curran, Attending Physician Drew Curran, Family Physician
--- NOTE | 2016-07-02 10:27 | EEG ---
ADMIT: 06/03/2016 RM/LOC: 419 [facility] MR#: [id number] [address] [facility] [address] [place], [place] [address] [address] [facility] [address] [place] [address] Inpatient EEG SEX: M AGE: 85 : 1930 DATE: 06/05/2016 EEG NUMBER: [id number]. HISTORY OF PRESENT ILLNESS: The patient is an 85-year-old gentleman with history of delirium. This is a routine 21-channel digital EEG recording performed on a cooperative patient, who was awake and drowsy in various portions of the study. The study is performed using the 10/20 international electrode placement system. During wakefulness, the background activity is fairly well organized, consisting of regular and symmetrical lower amplitude activity up to 8.5 Hz in frequency, seen posteriorly which attenuates with eye opening. In addition, moderate amount of low-amplitude fast activity is seen anteriorly. During periods of drowsiness, there is generalized attenuation of the posterior dominant rhythm with appearance of medium amplitude 6 to 7 Hz activity seen bilaterally. There were no focal slowing nor epileptiform discharges seen in this recording. Hyperventilation was not performed secondary to age, photic stimulation was performed at 1-33 Hz frequency, which elicited bilateral driving response. IMPRESSION: This is mildly abnormal, awake and drowsy EEG recording secondary to mild slowing of the posterior background rhythm which is suggestive of mild encephalopathy. COMMENTS: Normal cardiac rhythm is noted throughout this recording. Remy Mancuso MD/ modl JOB #: [id number] CC: Drew Curran MD, Attending Physician Drew Curran MD, Family Physician
--- NOTE | 2016-07-10 09:02 | DS ---
ADMIT: 06/03/2016 RM/LOC: 419 [facility] MR#: [id number] [id number] [place], [place] [address] [address] [facility] [address] [place] [address] General Discharge Summary SEX: M AGE: 85 : 1930 ADMISSION DATE: 06/03/2016 DISCHARGE DATE: 06/06/2016 ADMITTING DIAGNOSIS: As per history and physical. FINAL DIAGNOSES: 1. Altered mental status secondary to accidental prescription drug overdose. 2. Toxic encephalopathy. 3. Bradycardia secondary to overdose of beta-blockers. 4. Transient ischemic attack. 5. Chronic cerebrovascular disease. 6. Vascular dementia without behavioral disturbance. 7. Hypotension secondary to overdose of hypertensive medications. 8. 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 9. Depressive disorder, not otherwise specified. 10.Degenerative disk disease, lumbosacral spine. 11.Benign prostatic hypertrophy. 12.Gastroesophageal reflux disease without esophagitis. 13.Chronic constipation. 14.Generalized osteoarthritis. 15.Chronic venous insufficiency of the lower extremities. 16.Chronic insomnia. 17.Hypothyroidism. 18.Hypertension. 19.Hyperlipidemia. COMPLICATIONS: None. OPERATIONS: None. CLINICAL HISTORY: The patient is an 85-year-old, white male, brought to the ER by ambulance after being found at home by his son. He was noted to be confused, disoriented, and at one point was minimally responsive, sitting with just a blank stare. When initially evaluated by EMS, he was found to be hypotensive with systolic blood pressures in the low 80s, bradycardic with heart rates in the 40s. He was transported to the ER by ambulance and was evaluated there. CT of his head done in the ER showed changes of chronic small vessel disease and chronic ischemic disease, no evidence of acute stroke. The patient was given atropine for his bradycardia in the ER and admitted for monitoring of his neurologic status. He was returning to his baseline cognitive function while in the ER, but no other focal deficits. No evidence of acute stroke, but it was felt that he had had a probable TIA. For further details of his clinical history as well as past medical history and pertinent findings on physical exam, please see dictated history and physical. Please also see dictated Cardiology and Neurology consultation. LABORATORY AND X-RAY SUMMARY FROM THIS ADMISSION: His initial CBC showed a white count of 7000, hemoglobin 13.4. Repeat CBC the day following admission showed no change, white count 5800, hemoglobin 12.5, hematocrit 39.3. His ADMIT: 06/03/2016 RM/LOC: 419 [facility] MR#: [id number] [address] [address] [place] [address] General Discharge Summary SEX: M AGE: 85 : 1930 baseline protime and coagulation studies were normal. INR was 1.05. PTT was 21.1. Urinalysis on admission was clear. His initial chemistry studies showed a sodium of 143, potassium of 4.1, BUN of 19, creatinine of 1.4. LFTs were normal. Magnesium was normal at 2.2. Drug screen was negative for any illicit drugs. He was negative for prescription opiates as well as benzodiazepines. His chemistry studies at discharge showed a sodium of 143, potassium 3.5, BUN 20, creatinine 0.9. The patient's cholesterol was noted to be 123, triglycerides 88, HDL 52, LDL 53. His hemoglobin A1c was normal at 5.5. TSH was mildly elevated at 5.38. Vitamin D level was low at 10. Blood cultures drawn on admission showed no growth. Urine culture showed no growth. Blood type is noted to be A negative with negative antibody screen. X-ray studies included a head CT done in the ER, which showed chronic small vessel ischemic changes with no other signs of acute stroke or intracranial bleeding. CT angiogram did show a left proximal internal carotid artery stenosis of 73%. MRI of his head confirmed chronic small vessel ischemic changes with moderate- to-severe cerebral atrophy. His chest x-ray showed borderline cardiomegaly with some lower lobe atelectasis, but no acute infiltrates or evidence of pneumonia. Carotid Doppler study confirmed a significant stenosis in the left internal carotid artery ranging between 60-79%. This was evaluated further with CT angiogram of the carotids. His echocardiogram done during this hospitalization showed an EF of 60%, mild diastolic dysfunction. There is [id number] aortic regurgitation, trivial tricuspid regurgitation, mild age-related pulmonary hypertension. The patient did have an EEG performed which showed no evidence of seizure activity, mildly abnormal with generalized slowing of the background rhythm which is suggestive of a mild encephalopathy. EKG showed sinus bradycardia. Serial EKG showed no sequential change. HOSPITAL COURSE: The patient was admitted for monitoring of his cardiac and neurologic status. He was significantly bradycardic initially, but as his beta-blockers and calcium channel blockers were held, his hypotension and bradycardia resolved over the first 48 hours. Neurology saw him in consultation. It was felt that he had had a TIA episode probably precipitated by his hypotension and bradycardia. We saw no other new focal neurologic symptoms. The patient did exhibit paranoia and some delusional thought processes while in the hospital. He also showed significant short-term memory impairment and a presumptive diagnosis of vascular dementia was made. Over the course of his hospitalization, his mental status improved slowly, his cardiac symptoms resolved, and ultimately we had to resume blood pressure medication because of his elevated blood pressures. We did get a Palliative Care consult as well. It was felt that the patient would benefit from short- term rehab stay, and at discharge, on 06/06/2016, he was dismissed to a senior living unit bed at [facility] where he is to receive PT/OT and speech therapy. [facility] the [facility] 10[facility]14 days with him. Arrangements were also made for followup on the Cardiac and Neurology consultations as an outpatient. The patient was dismissed on the following medications: 1. Apresoline 25 mg t.i.d. 2. ASA 325 mg one daily. ADMIT: 06/03/2016 RM/LOC: 419 [facility] MR#: [id number] [address] [facility] [address] [place], [place] [address] [address] [facility] [address] [place] [address] General Discharge Summary SEX: M AGE: 85 : 1930 3. Flomax 0.4 mg b.i.d. 4. Mobic 15 mg daily. 5. Norvasc 5 mg daily. 6. Levothyroxine 75 mcg daily. 7. Zocor 20 mg at bedtime. 8. Vitamin B12 1000 mcg IM daily for 7 days, then once weekly. 9. Exelon 4.6 mg patch change daily. 10.Lortab 5 mg one every 4 hours for pain. 11.Maalox 30 mL p.r.n. indigestion. 12.Seroquel 12.5 mg once daily at bedtime. 13.Surfak 240 mg b.i.d. p.r.n. constipation. 14.Tylenol 650 mg q.4 hours p.r.n., minor discomfort. The patient is to have his blood [facility]. Arrangements were made for Vascular Surgery consult for his carotid occlusive disease with an appointment scheduled with Dr. Gates. At the time of discharge, do note the patient is a no code, do not resuscitate. We will dismiss to senior living unit bed at [facility] with planned followup as noted in approximately 7-10 days [facility] the [facility]. Drew Curran MD/ mo JOB #: [id number] CC: Drew Curran MD, Attending Physician Drew Curran MD, Family Physician
[2016-11-17] MEDS ORDERED: ARICEPT DPS5 MG PO (09:34)
[2016-11-17] MEDS ORDERED: LANOXIN125 MCG PO (09:35)
[2016-11-17] MEDS ORDERED: CELEXA DPS20 MG PO (09:35)
[2016-11-17] MEDS ORDERED: FLOMAX DPS0.4 MG PO (09:35)
[2016-11-17] MEDS ORDERED: MELATONIN3 MG PO (09:36)
[2016-11-17] MEDS ORDERED: LOPRESSOR DPS50 MG PO (09:36)
[2016-11-17] MEDS ORDERED: METAMUCIL SF P3.4 GM PO (09:36)
[2016-11-17] MEDS ORDERED: LASIX DPS40 MG PO (09:36)
[2016-11-17] MEDS ORDERED: ZOCOR DPS20 MG PO (09:38)
[2016-11-17] MEDS ORDERED: PROTONIX40 MG PO (09:38)
[2016-11-17] MEDS ORDERED: SULFAMYLON453.6 GM TP (09:38)
[2016-11-17] MEDS ORDERED: MICRO-K DPS10 MEQ PO (09:38)
[2016-11-17] MEDS ORDERED: COLACE-DPS100 MG PO (09:39)
[2016-11-17] MEDS ORDERED: TEFLARO600 MG IV (09:39)
[2016-11-17] MEDS ORDERED: NORCO 5-325 TA1 EACH PO (09:39)
[2016-11-17] MEDS ORDERED: MAALOX DPS30 ML PO (09:40)
[2016-11-17] MEDS ORDERED: TYLENOL DPS325 MG PO (09:40)
== END 2016-06-06 15:15 | DRG 917 ==
LOC: ER 14:43 → 4PCU 16:31
PROVIDERS: ADMIT Family Medicine
PROC: 4A10X4Z Monitoring of Central Nervous Electrical Activity, External Approach (ICD-10-PCS; principal; 2016-06-06)
DX: T46.5X1A Poisoning by other antihypertensive drugs, accidental (unintentional), initial encounter (principal); G92 Toxic encephalopathy; R00.1 Bradycardia, unspecified; G45.9 Transient cerebral ischemic attack, unspecified; E87.1 Hypo-osmolality and hyponatremia; F03.90 Unspecified dementia, unspecified severity, without behavioral disturbance, psychotic disturbance, mood disturbance, and anxiety; I95.2 Hypotension due to drugs; I65.22 Occlusion and stenosis of left carotid artery; F32.9 Major depressive disorder, single episode, unspecified; M51.36 Other intervertebral disc degeneration, lumbar region; N40.0 Benign prostatic hyperplasia without lower urinary tract symptoms; K21.9 Gastro-esophageal reflux disease without esophagitis; E53.8 Deficiency of other specified B group vitamins; K59.00 Constipation, unspecified; M15.9 Polyosteoarthritis, unspecified; I87.2 Venous insufficiency (chronic) (peripheral); G47.00 Insomnia, unspecified; E03.9 Hypothyroidism, unspecified; I10 Essential (primary) hypertension; E78.5 Hyperlipidemia, unspecified; Z79.82 Long term (current) use of aspirin; Z82.49 Family history of ischemic heart disease and other diseases of the circulatory system; Z66 Do not resuscitate

== ENCOUNTER → 2016-07-30 | Outpatient (CLI) | payer MEDICARE ==
[~2016-07-30] MED LIST: APRESOLINE-DPS25 MG PO; ARICEPT DPS5 MG PO; ASA325 MG PO; B-12 IM; CELEXA DPS20 MG PO; COLACE-DPS100 MG PO; DULCOLAX-DPS5 MG PO; EXELON1 EACH TD; FLOMAX DPS0.4 MG PO; LANOXIN125 MCG PO; LASIX DPS40 MG PO; LOPRESSOR DPS50 MG PO; MAALOX DPS30 ML PO; MELATONIN3 MG PO; METAMUCIL SF P3.4 GM PO; MICRO-K DPS10 MEQ PO; MOBIC15 MG PO; NORCO 5-325 TA1 EACH PO; NORVASC5 MG PO; PROTONIX40 MG PO; SEROQUEL25 MG PO; SULFAMYLON453.6 GM TP; SURFAK DPS240 MG PO; SYNTHROID75 MCG PO; TEFLARO600 MG IV; TYLENOL DPS325 MG PO; ZOCOR DPS20 MG PO
== END | disposition home or self-care (01) ==
LOC: CARD 08:51
DX: I48.91 Unspecified atrial fibrillation (principal); I49.3 Ventricular premature depolarization